=== PATIENT | female | born 1970 | race Caucasian/White ===

== ENCOUNTER 2020-02-23 16:46 | Outpatient (CLI) | payer BC, OTHER, SELFPAY ==
--- NOTE | ~2020-02-23 | MM_ITS ---
EXAMINATION: MM screening [facility] HISTORY: Screening mammogram TECHNIQUE: Craniocaudal and mediolateral oblique 3-D tomosynthesis images were obtained and synthetic 2-D images were generated. CAD analysis was submitted and interpreted. COMPARISON: 02/14/2019, 02/10/2018, 01/30/2017 bilateral digital screening mammogram examinations 02/16/2018 diagnostic left digital mammogram BREAST PARENCHYMAL COMPOSITION: The breasts are almost entirely fatty. FINDINGS: There is no evidence of suspicious mass, calcification, or architectural distortion to sugg est malignancy in either breast. There has been no suspicious interval change. IMPRESSION: 1. No mammographic evidence of malignancy. 2. Recommend routine screening mammography in one year. BI-RADS Category 1: Negative Reviewed, dictated and finalized at location A.
== END 2020-02-23 16:47 | disposition home or self-care (01) ==
LOC: ANHIMG 16:51
PROVIDERS: PCP Physician Assistant; Visit Provider Advanced Practice Midwife
DX: Z12.31 Encounter for screening mammogram for malignant neoplasm of breast (principal)
CPT/HCPCS: 77063; 77067

== ENCOUNTER 2021-02-26 17:08 | Outpatient (CLI) | payer BC, OTHER, SELFPAY ==
--- NOTE | ~2021-02-26 | MM_ITS ---
EXAMINATION: MM screening [facility] BI w va HISTORY: Screening mammogram TECHNIQUE: Craniocaudal and mediolateral oblique 3-D tomosynthesis images were obtained and synthetic 2-D images were generated. CAD analysis was submitted and interpreted. COMPARISON: 02/23/2020, 02/14/2019, 02/16/2018 BREAST PARENCHYMAL COMPOSITION: The breasts are almost entirely fatty. FINDINGS: There is no evidence of suspicious mass, calcification, or architectural distortion to sugg est malignancy in either breast. There has been no suspicious interval change. IMPRESSION: 1. No mammographic evidence of malignancy. 2. Recommend routine screening mammography in one year. BI-RADS Category 1: Negative Reviewed, dictated and finalized at location A.
== END 2021-02-26 17:09 | disposition home or self-care (01) ==
PROVIDERS: PCP Physician Assistant; Visit Provider Advanced Practice Midwife
DX: Z12.31 Encounter for screening mammogram for malignant neoplasm of breast (principal)
CPT/HCPCS: 77063; 77067

== ENCOUNTER 2022-02-06 00:08 | Day surgery (SDC) | payer BC, OTHER, SELFPAY ==
[2022-01-21 14:55] VITALS: BMI 55.6
--- NOTE | 2022-02-05 13:00 | WPDANESEPPF ---
Anes - Initial Pre Proc Eval Procedure: Operation Date: 02/06/22 08:00 Proposed Procedures p Screening Colonoscopy - Audi Esteban MD Date/Time: 02/05/22 13:00 Surgeon: uAdi Esteban MD Pre Op Diagnosis: hx of colon polyps, neoplasm screening Patient Data Age: 51 Gender: F Height: 1.57 m Weight: 138 kg Allergies Allergy/AdvReac Type Severity Reaction Status Date / Time terfenadine Allergy Mild Hives / Verified 02/06/22 07:11 Red Face Penicillins Allergy Unknown Hives Verified 02/06/22 07:11 Sulfa (Sulfonamide Allergy Unknown Hives Verified 02/06/22 07:11 Antibiotics) Home Medications Medication Instructions Recorded Confirmed Type cholecalciferol (vitamin D3) 125 125 mcg PO DAILY 01/21/22 02/06/22 History mcg (5,000 unit) capsule magnesium 250 mg tablet 250 mg PO DAILY 01/21/22 02/06/22 History valsartan 80 1 tablet PO DAILY 01/21/22 02/06/22 History mg-hydrochlorothiazide 12.5 mg tablet Patient hx anesthesia problems: none Family hx anesthesia problems: none Results Review: All pre-operative results and documents have been reviewed as part of the pre-operative evaluation. [facility] Past Medical History Medical History (Updated 02/05/22 @ 13:00 by Kody Bautista DO) Anxiety Hypertension Mitral valve prolapse Social History Social History Smoking status: Former smoker Tobacco type: cigarettes Alcohol intake: current Drinks per week: 6 Substance use type: does not use Living arrangements: with family Spiritual care concerns: No Anes - Eval Final PreProcedure Day of Procedure 02/05/22 13:00 Patient weight: morbidly obese and super morbidly obese Heart: regular rate and rhythm Lungs: clear to auscultation Airway: Mallampati scale class II Neurological: alert and oriented Last oral intake: >/= 8 hours ASA classification: III Emergent: no Anesthetic plan: proceed Anesthesia type and monitoring: general GIVS and standard monitoring Results Review: All pre-operative results and documents have been reviewed as part of the pre-operative evaluation. Informed Consent: The patient's anesthetic plan and its attendant risks and benefits were discussed with the patient/family/POA. Questions were solicited and answers provided to the satisfaction of the patient/family/POA.
[2022-02-06 07:17] VITALS: BP 140/89; PULSE 98; RESP 20; TEMP 36.2; O2SAT 100; BMI 53.8
[2022-02-06] MEDS: LACTATED RINGERS 1,000 ML 150 ML IV CONT (07:37)
--- NOTE | 2022-02-06 08:03 | P.HP_ITS ---
H&P: HPI History of Present Illness Date/Time: 02/06/22 08:03 Chief Complaint: History of colon polyps. Narrative: This is a 51-year-old white female patient presents for colonoscopy. Patient has a prior history of colon polyps. Patient reports that her current weight appetite and bowel movements are normal. She denies abdominal pain. She has had no bleeding. Family history Is significant for colon polyps. Review of Systems Review of Systems: Review of systems noncontributory. [facility] Past Medical History Medical History (Updated 02/06/22 @ 08:05 by Audi Esteban MD) Anxiety Hypertension Mitral valve prolapse Social History Social History Smoking status: Former smoker Tobacco type: cigarettes Alcohol intake: current Drinks per week: 6 Substance use type: does not use Living arrangements: with family Spiritual care concerns: No Meds Home Medications and Allergies Home Medications Medication Instructions Recorded Confirmed Type cholecalciferol (vitamin D3) 125 125 mcg PO DAILY 01/21/22 02/06/22 History mcg (5,000 unit) capsule magnesium 250 mg tablet 250 mg PO DAILY 01/21/22 02/06/22 History valsartan 80 1 tablet PO DAILY 01/21/22 02/06/22 History mg-hydrochlorothiazide 12.5 mg tablet Allergies Allergy/AdvReac Type Severity Reaction Status Date / Time terfenadine Allergy Mild Hives / Verified 02/06/22 07:11 Red Face Penicillins Allergy Unknown Hives Verified 02/06/22 07:11 Sulfa (Sulfonamide Allergy Unknown Hives Verified 02/06/22 07:11 Antibiotics) Vital Signs Vital Signs - 24 hr 02/06/22 07:17 Temperature 97.2 F L Pulse Rate 98 Respiratory Rate 20 Blood Pressure 140/89 Pulse Oximetry 100 Oxygen Delivery Room Air Exam Narrative: Physical exam reveals patient to be alert. Vital signs stable. HEENT exam is unremarkable. Patient is anicteric. Lungs are clear to auscultation and percussion. Heart is without murmur or extra sounds. Abdomen is obese. Abdomen bowel sounds present soft nontender with no hepatosplenomegaly. Digital external rectal exam is normal. Assessment and Plan Assessment and plan (1) History of colon polyps: Code(s): Z86.010 - Personal history of colonic polyps Status: Acute Assessment and Plan: Patient has a prior history of colon polyps. Plan is for surveillance colonoscopy now and consider this a 5 year intervals in the future. (2) Family history of colonic polyps: Code(s): Z83.71 - Family history of colonic polyps Status: Acute (3) Obese: Code(s): E66.9 - Obesity, unspecified Status: Acute Assessment and Plan: Weight loss with calorie restriction increase activity encouraged.
[2022-02-06] MEDS: SIMETHICONE ORAL SUSPENSION 20 MG/0.3 ML 30 ML BOTTLE 0.6 ML IRRIGATION (08:43)
[2022-02-06 08:55] VITALS: BP 103/59; PULSE 81; RESP 21; O2SAT 99
[2022-02-06 09:05] VITALS: BP 119/49; PULSE 74; RESP 22; O2SAT 99
[2022-02-06 09:15] VITALS: BP 123/57; PULSE 78; RESP 17; O2SAT 100
== END 2022-02-06 09:26 | disposition home or self-care (01) ==
PROVIDERS: PCP Physician Assistant; Visit Provider Internal Medicine Gastroenterology
PROC: 0DJD8ZZ Inspection of Lower Intestinal Tract, Via Natural or Artificial Opening Endoscopic (ICD-10-PCS; CPT 45378; principal; 2022-02-06 08:00)
DX: Z12.11 Encounter for screening for malignant neoplasm of colon (principal); K64.8 Other hemorrhoids; K57.30 Diverticulosis of large intestine without perforation or abscess without bleeding; Z86.010 Personal history of colon polyps; Z83.71 Family history of colonic polyps; I10 Essential (primary) hypertension; I34.1 Nonrheumatic mitral (valve) prolapse; Z87.891 Personal history of nicotine dependence; E66.01 Morbid (severe) obesity due to excess calories; Z68.43 Body mass index [BMI] 50.0-59.9, adult
CPT/HCPCS: 45378; J2704; J7120

== ENCOUNTER 2022-04-16 16:57 | Outpatient (CLI) | payer BC, OTHER, SELFPAY ==
--- NOTE | ~2022-04-16 | MM_ITS ---
EXAMINATION: MM screening [facility] HISTORY: Screening TECHNIQUE: Craniocaudal and mediolateral oblique 3-D tomosynthesis images were obtained and synthetic 2-D images were generated. CAD analysis was submitted and interpreted. COMPARISON: Comparison to multiple prior studies sequentially, with oldest reviewed study dated 02/2018. BREAST PARENCHYMAL COMPOSITION: There are scattered areas of fibroglandular density. FINDINGS: Focal left breast asymmetry laterally in the left breast is unchanged. There is no evidence of suspicious mass, calcification, or architectural distortion to suggest malignancy in either breas t. There has been no suspicious interval change. IMPRESSION: 1. No mammographic evidence of malignancy. 2. Recommend routine screening mammography in one year. BI-RADS Category 2: Benign finding(s). Reviewed, dictated and finalized at location A.
== END 2022-04-16 16:58 | disposition home or self-care (01) ==
PROVIDERS: PCP Physician Assistant; Visit Provider Advanced Practice Midwife
DX: Z12.31 Encounter for screening mammogram for malignant neoplasm of breast (principal)
CPT/HCPCS: 77063; 77067

== ENCOUNTER 2023-07-21 15:37 | Outpatient (CLI) | payer BC, OTHER, SELFPAY ==
--- NOTE | ~2023-07-21 | MM_ITS ---
EXAMINATION: MM screening [facility] HISTORY: Screening TECHNIQUE: Craniocaudal and mediolateral oblique 3-D tomosynthesis images were obtained and synthetic 2-D images were generated. CAD analysis was submitted and interpreted. COMPARISON: No prior mammogram is available for comparison at this institution. BREAST PARENCHYMAL COMPOSITION: The breasts are almost entirely fatty. FINDINGS: There is no evidence of suspicious mass, calcification, or architectural distortion to sugg est malignancy in either breast. There has been no suspicious interval change. IMPRESSION: 1. No mammographic evidence of malignancy. 2. Recommend routine screening mammography in one year. BI-RADS Category 1: Negative Reviewed, dictated and finalized at location A. [facility]
== END 2023-07-21 15:38 | disposition home or self-care (01) ==
PROVIDERS: PCP Physician Assistant; Visit Provider Advanced Practice Midwife
DX: Z12.31 Encounter for screening mammogram for malignant neoplasm of breast (principal)
CPT/HCPCS: 77063; 77067

== ENCOUNTER 2024-08-17 14:53 | Outpatient (CLI) | payer BC, SELFPAY ==
--- NOTE | ~2024-08-17 | MM_ITS ---
EXAMINATION: MM screening abdirashid BI w va HISTORY: Screening TECHNIQUE: Craniocaudal and mediolateral oblique 3-D tomosynthesis images were obtained and synthetic 2-D images were generated. CAD analysis was submitted and interpreted. COMPARISON: Comparison to multiple prior studies sequentially, with oldest reviewed study dated 02/14. BREAST PARENCHYMAL COMPOSITION: Not Dense: The breasts are almost entirely fatty. FINDINGS: There is no evidence of suspicious mass, calcification, or architectural distortion to sugg est malignancy in either breast. There has been no suspicious interval change. IMPRESSION: 1. No mammographic evidence of malignancy. 2. Recommend routine screening mammography in one year. BI-RADS Category 1: Negative Reviewed, dictated and finalized at location B. [employer]
--- OUTSIDE RECORDS SUMMARY | 2024-08-17 14:58 | XMS_ITS | Encounter Summary ---
Author Organization [facility] Facility Care Team Providers Care Foam Dispenser Name Role Phone DEMARCUS Price Jr., Josiah Leyva Primary Care Provide r Silvana Eastman MD Unavailable [phone] De Higgins MD Unavailable Seth Lofton MD Unavailable [phone] Encounter Details Date Type Department Care Team (Latest Contact Info) Description 02/12/2017 Orders Only [facility] Provider, MD Trae [address] [place] [id number] Social History Tobacco Use Types Packs/Day Years Used Date Smoking Tobacco: Never Assessed Comments Unknown Sex and Gender Information Value Date Recorded Sex Assigned at Not on file Legal Sex Female 1:52 PM [employer] Gender Identity Female 01/25/2020 1:18 AM CDT Sexual Orientation Straight 01/25/2020 1: 18 AM CDT documented as of this encounter Plan of Treatment Not on file documented as of this encounter Procedures Procedure Name Priority Date/Time Associated Diagnosis Comments COLONOSCOPY - SCAN 02/12/2017 12 :00 AM CDT documented in this encounter Results * COLONOSCOPY - SCAN (02/12/2017 12:00 AM CDT) Narrative 02/12/2017 12:00 AM CDT Ordered by an unspecified provider. Historical Provider Final Res ult documented in this encounter Visit Diagnoses Not on filedocumented in this encounter Care Teams Foam Dispenser Relationship Specialty Start Date End Date Josiah Price Jr., PA [address] [place] [id number] PCP - General Family Medicine 02/16/19 Silvana Eastman MD [address] [place] [id number] Consulting Physician Family Medicine 02/16/19 12/24/21 De Higgins MD [address] [place] [id number] Consulting Physician Family Medicine 12/25/21 Seth Lofton MD [address] [address] Consulting Physician General Surgery 01/14/23 documented as of this encounter
--- OUTSIDE RECORDS SUMMARY | 2024-08-17 14:58 | XMS_ITS | Data Portability ---
Author Organization [facility] Address [address] [place] [address] Care Team Providers Care Black Topper Name Role Phone LETICIA CHENG Primary Care Provider Assessment Encounter Date Assessment Date Assessment LastModified by Organization Details LastModified Time 09/12/2022 09/12/2022 Pt tolerated well, no complaints Not available 09/13/2022 18:28:40 07/29/2023 07/29/2023 Annual gynecological exam performed. Patient will come back in a year unless there are new symptoms. Suggested Calcium with Vitamin D 1200-1500mg daily. Patient advised to get an annual flu shot in the fall and she could obtain at [facility] or [facility] clinic. Also to obtain TDap vaccination if you have not had one in the last 10 years. Recommend yearly mammograms. Encouraged monthly self breast exams. Encourage safe sexual practices, to use condoms and limit partners if not already in a monogamous relationship. Engage in daily exercise of low impact aerobic exercise 45-60 minutes 4-5 times weekly. Avoid tobacco and illicit drugs as well as using moderation with alcohol intake less than 1-2 8 oz beverages daily. This lifestyle behavior pattern will lead to less health conditions and longer life span. If BMI greater than 25 weight watchers or dietary consult advised. All questions have been answered. Patient appears to understand information, but if you have any questions please call or respond to this email. Not available 07/29/2023 16:58:27 08/03/2024 08/03/2024 Annual gynecological exam performed. Patient will come back in a year unless there are new symptoms. Suggested Calcium with Vitamin D 1200-1500mg daily. Patient advised to get an annual flu shot in the fall and she could obtain at [facility] or [facility] care clinic. Also to obtain TDap vaccination if you have not had one in the last 10 years. Recommend yearly mammograms. Encouraged monthly self breast exams. Encourage safe sexual practices, to use condoms and limit partners if not already in a monogamous relationship. Engage in daily exercise of low impact aerobic exercise 45-60 minutes 4-5 times weekly. Avoid tobacco and illicit drugs as well as using moderation with alcohol intake less than 1-2 8 oz beverages daily. This lifestyle behavior pattern will lead to less health conditions and longer life span. If BMI greater than 25 weight watchers or dietary consult advised. All questions have been answered. Patient appears to understand information, but if you have any questions please call or respond to this email. pap collected labs ordered mammogram order given Not available 08/04/2024 13:37:32 Plan of Treatment Reminders Order Date Submit Date Provider Last Modified By Organization Details Last Modified Time Details Appointments None recorded. Lab test, urine 2022 023 [email or web address] 1 [address], [address], [place], [address], 3 16:55:55 hormone panel, serum or plasma 2024 025 [facility] (Lab), [address], [place], [address], 5 09:08:20 Referral None recorded. Procedures None recorded. Surgeries None recorded. Imaging US, pelvis 2023 024 [email or web address] [address], [place], [address], 4 14:22:15 US, transvagina l 2023 024 [email or web address] [address], [place], [address], 4 14:22:15 Medication Orders Slynd 4 mg (28) tablet 2022 023 [email or web address] 1 [facility] #[id number], [address], [place], [id number], 5 17:36:03 Nystop 100,000 unit/gram topical powder 2023 024 CANDACE [facility] #[id number], [address], [place], [id number], 4 16:57:09 Patient TargetsNo targets recorded. Patient InstructionsNo instructions recorded. Reason for Referral None Reported. Results Created Date Observation Date Name Description Value Unit Range Abnormal Flag Note LastModifiedBy Organization Detail LastModifiedTime 09/13/1909/12/2022 SURGI NICK PATHO LOGY surgical pathology SEE RESULT S BELOW CASE REPOR T: Surgi nick Patho logy Repor t Case: [id number] Autho suhas colbert Provi violette: Liane Navarro NP Colle cted: 09/12 1625 Order ing Locat ion: [place] [facility] Recei champ: 09/13 0253 Patho logis t: Brea Ivan MD Speci men: Endom etriu m, EMB FINAL DIAGN OSIS: Endom etriu m, biops y: -Inac tive endom etriu m with stacey al break down. -No hyper plasi a or malig dale prese nt. Elect liang rodas by Brea Ivan MD on 2022 at 9:48 AM ----- ----- ----- ----- ----- ----- ----- ----- ----- ----- ----- ----- ----- ----- ----- ----- ----- ---- CLINI NICK INFOR MATIO N: n93.9 MICRO SCOPI C DESCR IPTIO N: A micro scopi c exami natio n was perfo rmed. GROSS DESCR IPTIO N: A. Krystal murillowill jacques. The speci men is label ed with the patie nt's name, sebastian valderramai cs and EMB . Recei champ in forma juan is a 2.0 x 2.0 x 0.3 cm aggre gate of watson-b rown tissu e and blood clot. The entir e speci men is submi tted in one casse tte. Gross ed by Jaelyn Jimenez Not Available [facility] (Lab) [address], [place], [address], 09/15/2022 10:50:25 09/13/19 23 09/12/2022 pregn rodrick test, urine HCG negati ve Not Available [facility] [address], [place], [address], 09/12/2022 16:55:37 07/29/19 24 07/29/2023 IMAGE GUIDE D PAP AND HPV REGAR DLESS image guided Pap, HPV regardless of Pap result SEE RESULT S BELOW CASE REPOR T: Cytol ogy Gynec ologi nick Repor t Case: [id number] Autho suhas g Provi violette: Liane Navarro NP Colle cted: 07/29 1734 Order ing Locat ion: [place] Patho [place] Recei champ: 07/30 0034 First Scree n: Estela Berry Speci men: Scree diana Pap - Image d, Cervi x STATE MENT OF ADEQU ACY: Satis facto ry for evalu ation Trans forma tion zone compo nent prese nt FINAL DIAGN OSIS: Negat ralph for Intra epith elial Lesio n or Jan hunter (NIL) . Elect liang manjarrez rashmi d by Estela Berry on 2023 at 7:26 PM ----- ----- ----- ----- ----- ----- ----- ----- ----- ----- ----- ----- ----- ----- ----- ----- ----- ---- HPV RESUL TS: HPV mRNA E6/E7 : No HPV mRNA Detec jaky NOTE: This high risk HPV mRNA assay detec ts fourt een high- risk HPV types (16, 18, 31, 33, 35, 39, 45, 51, 52, 56, 58, 59, 66, 68) witho ut diffe renti ation . COMME NT: This speci men was revie wed by a Cytot echno logis t and/o r Patho logis t (as indic ated in this repor t) after evalu ation using the Thinp rep Imagi ng Syste m. CLINI NICK INFOR MATIO N: Menst rual Statu s: LMP (if appli cable ): Clini nick Histo ry/Pr eviou s Pap: Type of Neopl norma (if appli cable ): Signi fican t Clini nick Findi ngs: Other Histo ry: Hormo carmen (if appli cable ): PAP EDUCA OLLIE L NOTE: The Pap Test is a scree diana test with an inher ent false negat ralph rate. Liqui d-bas ed sampl ing may decre ase, but will not elimi jacobo, false negat ralph resul ts. A negat ralph resul t does not precl ude the prese nce and/o r devel opmen t of disea se, since the prese nce of abnor mal cells in the sampl e depen ds on the locat ion of the lesio n and sampl ing techn ique. Lani nued regul ar scree diana is the best metho d of cance r preve ntion . If repor jaky cytol ogic findi ng do not corre late with physi nick and/o r histo rical findi ngs, furth er inves tigat ion is recom herbert d, as clini frankie sequeira nted. Not Available [facility] (Lab) [address], [place], [address], 07/30/2023 20:30:19 08/03/19 25 08/03/2024 FSH, LH, ESTRA DIOL estradiol 126.0 pg/mL This assay was perfo rmed using [employer] ratio n reage nts and test kits. Value s obtai harsha with other assay metho ds or kits canno t be used [facility] . Femal e Estra diol Range s: Folli cular phase 12.4- 233 pg/mL Ovula tion phase 41.0- 398 pg/mL Lutea l phase 22.3- 341 pg/mL Postm enopa usal <5-13 8 pg/mL Healt hy Pregn ant Women 1st Trime ster 154-3 243 pg/mL 2nd Trime ster 1561- 37380 pg/mL 3rd Trime ster 8525- >3000 0 pg/mL Not Available [facility] (Lab) [address] [place], [address], 08/04/2024 09:08:20 08/03/19 25 08/03/2024 FSH, LH, ESTRA DIOL FSH 14.9 mIU/m L This assay was perfo rmed using [employer] n reage nts and test kits. Value s obtai harsha with other assay metho ds or kits canno t be used [facility] . Femal es Folli cular : 3.5-1 2.5 mIU/m L Ovula tion: 4.7-2 1.5 mIU/m L Lutea l: 1.7-7 .7 mIU/m L Postm enopa use: 25.8- 134.8 mIU/m L Not Available [facility] (Lab) [address] [place], [address], 08/04/2024 09:08:20 08/03/1908/03/2024 FSH, LH, ESTRA DIOL LH 34.6 mIU/m L This assay was perfo rmed using [employer] reage nts and test kits. Value s obtai harsha with other assay metho ds or kits canno t be used inter [facility] . Femal es Mid-F ollic ular: 2.4-1 2.6 mIU/m L Mid-C ycle: 14.0- 95.6 mIU/m L Mid-L uteal : 1.0-1 1.4 mIU/m L Postm enopa use: 7.7-5 8.5 mIU/m L Not Available [facility] (Lab) [address], [place], [address], 08/04/2024 09:08:20 08/03/19 25 08/03/2024 IMAGE GUIDE D PAP AND HPV REGAR DLESS image guided Pap, HPV regardless of Pap result SEE RESULT S BELOW CASE REPOR T: Cytol ogy Gynec ologi nick Repor t Case: [id number] Autho suhas sayra Provi violette: Liane Navarro NP Colle cted: 08/03 1707 Order ing Locat ion: [place] Patho logy Recei champ: 08/04 0902 First Nannette n: Sedrick Rahman CT Speci men: Nannette diana Pap - Image d, Cervi x STATE MENT OF ADEQU ACY: Satis facto ry for evalu ation Trans forma tion zone compo nent absen t ----- ----- ----- ----- ----- ----- ----- ----- ----- ----- ----- ----- ----- ----- ----- ----- ----- ---- FINAL DIAGN OSIS: Negat ralph for Intra epith elial Lesnargis n or Jan hunter (NIL) . Elect liang caraballo d by Sedrick Rahman CT on 025 at 0845 REGIONAL CLIMATE CHANGE ANALYST ----- ----- ----- ----- ----- ----- ----- ----- ----- ----- ----- ----- ----- ----- ----- ----- ----- ---- HPV RESUL TS: HPV mRNA E6/E7 : No HPV mRNA Detec jaky NOTE: This high risk HPV mRNA assay detec ts fourt een high- risk HPV types (16, 18, 31, 33, 35, 39, 45, 51, 52, 56, 58, 59, 66, 68) witho ut diffe renti ation . COMME NT: This speci men was revie wed by a Cytot echno logis t and/o r Patho logis t (as indic ated in this repor t) after evalu ation using the Thinp rep Imagi ng Syste m. CLINI NICK INFOR MATIO N: Menst rual Statu s: LMP (if appli cable ): Clini nick Histo ry/Pr eviou s Pap: Type of Neopl norma (if appli cable ): Signi fican t Clini nick Findi ngs: Other Histo ry: Hormo carmen (if appli cable ): PAP EDUCA OLLIE L NOTE: The Pap Test is a scree diana test with an inher ent false negat ralph rate. Liqui d-bas ed sampl ing may decre ase, but will not elimi jacobo, false negat ralph resul ts. A negat ralph resul t does not precl ude the prese nce and/o r devel opmen t of disea se, since the prese nce of abnor mal cells in the sampl e depen ds on the locat ion of the lesio n and sampl ing techn ique. Lani nued regul ar scree diana is the best metho d of cance r preve ntion . If repor jaky cytol ogic findi ng do not corre late with physi nick and/o r histo rical findi ngs, furth er inves tigat ion is recom herbert d, as clini frankie sequeira nted. Not Available [facility] (Lab) [address], [place], [address], 08/09/2024 09:49:49 09/10/19 23 09/10/2022 US, tremaine s No observ ation record ed. [email or web address] [facility] [address], [place], [address], 09/10/2022 17:35:59 09/10/19 23 09/10/2022 US, trans vagin al No observ ation record ed. [email or web address] [facility] [address], [place], [address], 09/10/2022 17:35:50 09/10/19 23 09/09/2022 US, pelvi s No observ ation record ed. [facility] [address], [place], [address], 09/10/2022 20:21:26 07/21/19 24 07/21/2023 imagi ng/di agnos tic resul t No observ ation record ed. [facility] [address], [place], [address], 07/24/2023 18:28:28 05/10/20 24 05/10/2024 US, pelvi s No observ ation record ed. [email or web address] [facility] [address], [place], [address], 05/10/2024 11:22:46 05/10/20 24 05/10/2024 US, trans vagin al No observ ation record ed. [email or web address] [facility] [address], [place], [address], 05/10/2024 11:22:55 05/10/20 24 05/10/2024 US, pelvi s No observ ation record ed. CANDACE [facility] [address], [place], [address], 05/14/2024 10:13:09 Result Notes None recorded. 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 18:33:33 Screenin g for malignan t neoplasm of rectum Completed 201603/20/2021 Encounte r for screenin g for malignan t neoplasm of rectum;R ecorded Elsewher e: No Locat ion: [facility] S ource: [employer] Software Designer olga lidia: N Practi ce ID: [id number] Kurt lable Time: 08:30:00 AM Kristina Pineda [facility], [facility] 18:33:29 Speciali zed medical examinat ion Completed 201003/20/2021 Routine gynecolo gical examinat ion;Prac jessie ID: [id number] Kristina Pineda [facility], [facility] 18:33:36 Screenin g for malignan t neoplasm of cervix Completed 201003/20/2021 Pap Smear;Pr actice ID: [id number] Kristina Pineda [facility], [facility] 18:33:26 Body mass index 30+ - obesity [id number] Completed 201803/20/2021 Body mass index (BMI) 50-59.9 , adult;Re corded Elsewher e: No Locat ion: [facility] S ource: [employer] Software Designer olga lidia: N Practi ce ID: [id number] Kurt lable Time: 09:15:00 AM Kristina Pineda [facility], [facility] 18:33:[address] Concept Completed 201603/20/2021 Encntr for general adult medical exam w/o abnormal findings ;Recorde d Elsewher e: No Locat ion: [facility] S ource: [employer] Software Designer olga lidia: N [place] ce ID: [id number] Kurt lable Time: 08:30:00 AM Kristina gaviria [facility] 18:33:30 Radiolog ic finding [id number] Completed 201703/20/2021 Oth abn and inconclu sive findings on dx imaging of breast;R ecorded Elsewher e: No Locat ion: [facility] S ource: [employer] Software Designer olga lidia: N Practi ce ID: [id number] Kurt lable Time: 08:39:31 AM Kristina gaviria [facility] 18:33:24 Adult health examinat ion Completed 201403/20/2021 ROUTINE MEDICAL EXAM;Rec orded Elsewher e: No Locat ion: [facility] S ource: [employer] Software Designer olga lidia: N Joeti ce ID: [id number] Kurt lable Time: 09:30:00 AM Kristina gaviria [facility] 18:33:19 Problem Notes None recorded. Procedures Surgical History Date Name Laterality Status Provider Name and Address Organization Details Recorded Time 025 Date of Last Pap Smear completed Kristinagris Pineda [facility] 08/03/2024 17:39:27 024 Date of Last Mammogram completed Kristinagris Pineda [facility] 07/21/2023 23:20:32 023 cholecystectomy completed Kristina Pineda [facility] 03/04/2023 18:25:30 023 Endometrial Biopsy completed Liane Henning CNM [address], [place], [address], [facility] 09/13/2022 18:29:04 023 endometrial biopsy completed Kristinagris Pineda [facility] 07/21/2023 23:56:43 022 completed [facility] 06/11/2022 17:48:02 022 Date of Last Colonoscopy completed [facility] 06/11/2022 17:48:02 022 Colonoscopy completed [facility] 06/11/2022 17:52:13 017 Colonoscopy completed [facility] 02/28/2020 20:07:38 012 Colonoscopy completed [facility] 02/28/2020 20:07:41 011 anal fistulectomy completed [facility] 02/28/2020 20:08:12 001 Colonoscopy completed [facility] 02/28/2020 20:07:44 Imaging Results Imaging Date Name Status LastModified by Organization Details LastModified Time 09/10/2022 US, pelvis completed [email or web address] [facility] [address], [place], [address], 09/10/2022 17:35:59 09/10/2022 US, transvaginal completed [email or web address] [facility] [address], [place], [address], 09/10/2022 17:35:50 09/09/2022 US, pelvis completed [email or web address] [facility] [address], [place], [address], 09/10/2022 20:21:26 07/21/2023 imaging/diagnost ic result completed [facility] [address], [place], [address], 07/24/2023 18:28:28 05/10/2024 US, pelvis completed [email or web address] [facility] [address], [place], [address], 05/10/2024 11:22:46 05/10/2024 US, transvaginal completed [email or web address] [place] [address], [place], [address], 05/10/2024 11:22:55 05/10/2024 US, pelvis completed CANDACE [facility] [address], [place], [address], 05/14/2024 10:13:09 Procedure Notes None recorded. Medical Equipment None Reported. Allergies Allergen ID Allergen Name Allergen Category Reaction Reaction Severity Criticality Documentation Date Start Date Code Code System Note Provider Name and Address Organization Details Recorded Time 1833 Product containin g penicilli n and antibioti c (product) medicatio n Not available Not available Not available 02/28/2020 87903 05 SNOMED Kristina gaviria, [facility] 0 19:57:04 1834 Substance with sulfonami de structure and antibacte rial mechanism of action (substanc e) medicatio n Not available Not available Not available 02/28/2020 40488 8003 SNOMED Kristina gaviria, [facility] 0 19:57:11 1835 terfenadi ne medicatio n Not available Not available Not available 02/28/2020 58565 RxNorm Kristina gaviria [facility] 0 20:02:55 Medications Name Sig Start Date Stop Date Status Note LastModified by Organization Details LastModified Time metolazon e 2.5 mg tablet 06/11 completed Not Available Not Available Not Available azithromy mikala 250 mg tablet TK 2 TS PO ON DAY 1, THEN TK 1 T PO D FOR 4 DAYS 03/20 completed Not Available Not Available Not Available hydrocodo ne 5 mg-acetam inophen 325 mg tablet 03/04 completed Not Available Not Available Not Available Nystop 100,000 unit/gram topical powder APPLY TOPICALL Y TO THE AFFECTED AREA TWICE DAILY PER DAY active Not Available Not Available No t Available sucralfat e 1 gram tablet 07/29 completed Not Available Not Available Not Available metronida zole 500 mg tablet TAKE 1 TABLET BY MOUTH EVERY 12 HOURS 03/04 completed Not Available Not Available Not Available valsartan 80 mg-hydroc hlorothia zide 12.5 mg tablet TAKE 1 TABLET BY MOUTH DAILY active Not Available Not Available No t Available pantopraz ole 40 mg tablet,de layed release 07/29 completed Not Available Not Available Not Available clobetaso l 0.05 % topical ointment apply by topical route 2 times every day a thin layer to the affected area(s) 03/20 completed Prescrib ed Elsewher e: No Locat ion: [facility] By: yang tz Chayo guthrie DateTime : 12/14/19 14 10:00:00 AM Not Available Not Available Not Available Vitamin D2 1,250 mcg (50,000 unit) capsule take 1 capsule by oral route every week 12/25 completed Prescrib ed Elsewher e: No Locat ion: [facility] By: arthur philip DateTime : 12/21/19 15 10:52:52 AM Not Available Not Available Not Available vitamin B complex capsule active Prescrib ed Elsewher e: Yes Loca tion: [facility] By: trent estes DateTime : 02/15/20 19 09:15:00 AM Not Available Not Available Not Available ciproflox acin 0.3 %-dexamet hasone 0.1 % ear drops,perfecto pension SHAKE LIQUID AND INSTILL 4 DROPS TO LEFT EAR TWICE DAILY FOR 7 DAYS 03/20 completed Not Available Not Available Not Available magnesium active Not Available Not Celsa ilable Not Available Vitamin D3 active Not Available Not Available Not Available vitamin [id number] acid 06/11 completed Not Available Not Available Not Available Vitamin D3 10 mcg (400 unit) capsule 03/20 completed Prescrib ed Elsewher e: Yes Loca tion: [facility] By: trent Siu r DateTime : 02/15/20 19 09:15:00 AM Not Available Not Available Not Available Nascobal 500 mcg/spray nasal spray spray 1 spray by intranas al route every week into one nostril at least 1 hour before or 1 hour after hot foods or liquids 02/14 completed Prescrib heri Higgins e: No Locat ion: [facility] By: trent Siu r DateTime : 01/04/20 16 12:47:42 PM Not Available Not Available Not Available zinc 15 mg-colos- [id number]-[id number] -psacc1 50 mg-thyme 1 mg-aceman 1 mg capsule Take by oral route. active Not Available Not Available No t Available Slynd 4 mg (28) tablet TAKE 1 TABLET BY MOUTH EVERY DAY 08/03 completed Not Available Not Available Not Available Fluarix Quad (PF) 60 mcg (15 mcg x 4)/0.5 mL IM syringe 02/27 completed Not Available Not Available Not Available Slynd 08/03 completed Not Available Not Available Not Available Sutab 1.479-0.1 88-0.225 gram tablet TAKE DIRECTED 06/11 completed Not Available Not Available Not Available Vitals Date Recorded Body height Body mass index (BMI) Body weight Systolic blood pressure Diastolic blood pressure Provider Name and Address Organization Details Last Updated DateTime 09/12/2022 156.85 cm 54.9 kg/m2 000948.5 3 g 128 mm[Hg] 85 mm[Hg] Kristina Pineda [facility] 3 16:43:19 Date Recorded Body height Body mass index (BMI) Body weight Systolic blood pressure Diastolic blood pressure Provider Name and Address Organization Details Last Updated DateTime 03/04/2023 156.85 cm 52.2 kg/m2 724189.6 4 g 128 mm[Hg] 83 mm[Hg] Kristina Pineda [facility] 3 18:23:36 Date Recorded Body height Body mass index (BMI) Body weight Systolic blood pressure Diastolic blood pressure Provider Name and Address Organization Details Last Updated DateTime 07/29/2023 156.85 cm 53.9 kg/m2 596044.6 9 g 123 mm[Hg] 84 mm[Hg] Karen Street [facility] 4 16:34:13 Date Recorded Body height Body mass index (BMI) Body weight Systolic blood pressure Diastolic blood pressure Provider Name and Address Organization Details Last Updated DateTime 08/03/2024 156.85 cm 56.4 kg/m2 097274.2 7 g 143 mm[Hg] 90 mm[Hg] Kristina Pineda [facility] 5 17:31:25 Social History Question Answer Notes LastModified by Organizat ion Details LastModified Time Tobacco Smoking Status Never Smoker Danica gaviria, [facility] 07/29/2023 16:22:16 Do You Have An Advance Directive? No [email or web address] Information not available 03/20/2021 What Is Your Level Of Alcohol Consumption? Moderate [email or web address] Information not available 03/20/2021 How Many Years Have You Consumed Alcohol? 32 [email or web address] Information not available 06/11/2022 Are You Blind Or Do You Have Difficulty Seeing? No [email or web address] Information not available 03/20/2021 What Is Your Level Of Caffeine Consumption? Moderate [email or web address] Information not available 03/20/2021 How Much Tobacco Do You Chew? None [email or web address] Information not available 03/20/2021 In The 14 Days Before Symptom Onset, Have You Had Close Contact With A Laboratory-confir med COVID-19 While That Case Was Ill? No [email or web address] Information not available 03/20/2021 In The 14 Days Before Symptom Onset, Have You Had Close Contact With A Person Who Is Under Investigation For COVID-19 While That Person Was Ill? No [email or web address] Information not available 03/20/2021 Have You Been To An Area Known To Be High Risk For COVID-19? No [email or web address] Information not available 03/20/2021 Are You Deaf Or Do You Have Serious Difficulty Hearing? No [email or web address] Information not available 03/20/2021 What Type Of Diet Are You Following? REGULAR [email or web address] Information not available 03/20/2021 Do You Or Have You Ever Used E-cigarettes Or Vape? Never Used Electronic Cigarettes [email or web address] Information not available 07/29/2023 What Is The Highest Grade Or Level Of School You Have Completed Or The Highest Degree You Have Received? 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 Yes [email or web address] Information not available 03/20/2021 What Was The Date Of Your Most Recent Tobacco Screening? 08/03/2024 [email or web address] Information not available 08/03/2024 Do You Use Protection During Sex? Always [email or web address] Information not available 03/20/2021 Do You Use Your Seat Belt Or Car Seat Routinely? Yes [email or web address] Information not available 03/20/2021 Do You Have Smoke And Carbon Monoxide Detectors In Your Home? Yes [email or web address] Information not available 03/20/2021 Do You Or Have You Ever Used Smokeless Tobacco? Never Used Smokeless Tobacco [email or web address] Information not available 07/29/2023 How Much Tobacco Do You Smoke? No [email or web address] Information not available 02/28/2020 Do You Feel Stressed (tense, Restless, Nervous, Or Anxious, Or Unable To Sleep At Night)? [id number] [email or web address] Information not available 03/20/2021 Do You Use Any Illicit Or Recreational Drugs? No [email or web address] Information not available 03/20/2021 Do You Use Sunscreen Routinely? Yes [email or web address] Information not available 03/20/2021 Have You Used IV Drugs? No [email or web address] Information not available 03/20/2021 Sex: Female Functional Status Question Answer Note LastModified by Organizat ion Details LastModified Time Do you have difficulty walking or climbing stairs? No Information not available 07/29/2023 Are you able to walk? YESWOREST [email or web address] Information not available 03/20/2021 Are you able to care for yourself? Yes [email or web address] Information not available 07/29/2023 Do you have difficulty dressing or bathing? No [email or web address] Information not available 07/29/2023 What is your exercise level? Occasional [email or web address] Information not available 03/20/2021 Mental Status None recorded. Family History Relationship Description Onset Age of this Age Resolved Age Notes LastModified by Organization Details LastModified Time Paternal Grandfather Cerebrovascu lar accident Not available 20:06:04 Paternal Grandfather History of hip fracture [email or web address] Not available 17:35:50 Paternal Grandmother Malignant tumor of breast 60 [email or web address] Not available 08/03 17:35:50 Paternal Grandmother Malignant neoplasm of bone [email or web address] Not available 08/03 17:35:50 Maternal Grandmother Malignant neoplasm of liver 70 Not available 08/03 17:35:50 Maternal Grandmother Malignant tumor of colon 70 [email or web address] Not available 08/03 17:35:50 Paternal Uncle Malignant tumor of colon 40 [email or web address] Not available 08/03 17:35:50 Unspecified Relation Malignant tumor of ovary 20 patern al cousin [email or web address] Not available 08/03/2024 17:35:50 Notes:Maternal grandmother: Cancer, colon, liver cancer Paternal grandfather: CVA 85y/o A&W hip fx Paternal grandmother: Cancer, breast, bone cancer Medical History Condition Response Allergies (Food, seasonal, environmental ) N Other N Breast Cancer N Drug/Latex Allergies/Reactions N Blood Transfusion N Dermatologic Disorders N Lung Disease N Defects or Inherited Disease N Breast Problem N Gestational Diabetes N Hematologic disorders N Anesthesia Complications N History of STI Y Deep Vein Thrombosis N Polycystic ovary syndrome N Anxiety Disorder N Autoimmune disease N Arthritis N Infertility N Polyps N Acid Reflux (GERD) Y History of abnormal pap Y Cancer N Stroke N Varicosities N Neurologic/Epilepsy N Endometriosis N High Cholesterol N Headaches N Fibromyalgia N Kidney Disease N Heart Problems N Kidney or Bladder Problems N Thyroid Problems N GI Problems Y Eating Disorder N Anemia N Art (IVF or FET) N Psychiatric Illness N Ovarian Cancer N Diabetes N Pulmonary (TB, Asthma) N Hepatitis/Liver Disease N No Past Medical History N Eczema N Urinary Tract Infection N Abuse/Domestic Violence N Asthma N Trauma/Violence N Depression/ depression N Heart Disease N Pre-Eclampsia N Hypertension Y Osteoporosis N Thrombophilias N Gynecological History Statement/Question Response Abnormal Pap Y Flow Light Date of Last Mammogram 07/21/2023 Date of LMP 07/20/2024 N On BCP's at Conception? N STIs/STDs Y Was last menstrual period normal N HPV Vaccine N Duration of Flow (days) 7 Current Control Method Partner Vas ectomy Age at First Child 29 Date of Last Colonoscopy 02/06/2022 Frequency of Cycle (Q days) 29 Sexually Active? Y Menses Monthly N Age of first menstrual cycle 14 Date of Last Pap Smear 08/03/2024 Sexual Problems? N LMP Definite Desired Control Method BCPs 02/06/2022 Y Obstetrics History GPAL:G 2 P 1 1 0 2 Type Value Full Term 1 Premature 1 Living 2 Total 2 Past Encounters Encounter ID Performer Location Encounter Start Date Encounter Closed Date Diagnosis/Indication Diagnosis SNOMED-CT Code Diagnosis ICD10 Code Diagnosis Note [id number] Liane Henning [facility] [address],[place] [address] 02/28/2020 18:19:35 02/29/2020 22:10:19 Gynecologic examination 80888491 Z01.419 [id number] Liane Henning [facility] [address],[place] [address] 03/20/2021 18:18:26 03/22/2021 15:19:41 [id number] Liane Henning [facility] [address],[place] [address] 06/11/2022 17:26:49 06/13/2022 15:52:48 Gynecologic examination 94148704 Z01.[address] Z11.[id number] [facility] [address],[place] [address] 09/09/2022 17:09:42 09/09/2022 18:01:13 Irregular periods 65925993 N92.6 [id number] Liane Henning [facility] [address],[place] [address] 09/12/2022 16:31:59 09/15/2022 17:29:54 Screening procedure 18588619 Z13.9 Irregular periods 627079 07 N92.6 Discussed possible progestero ne to regulate cycles (slynd) will await pathology [id number] Liane Henning [facility] [address],[place] [address] 03/04/2023 18:16:37 03/05/2023 12:25:55 Irregular periods 08397897 N92.6 will continue slynd, re evaluate at next wwe [id number] Liane Henning [facility] [address],[place] [address] 07/29/2023 16:21:54 07/29/2023 17:01:25 Yeast detected 511756232 R89.5 [id number] Marine Looney Hutchins [address],[place] [address] 05/10/2024 10:40:01 05/10/2024 11:53:42 Abnormal uterine bleeding 1732874165 9100 N92.6 [id number] Liane Henning [facility] [address],[place] [address] 08/03/2024 17:09:51 08/04/2024 16:56:21 Irregular periods 23952185 N92.6 if monthly cycles will continue to monitor, discussed slynd, ablation, call if any irregular cycles Health Concerns Section Related Observation LastModified by Organization Detai ls LastModified Time None Recorded Concern Status LastModified by Organization Details LastModified Time None Recorded Advance Directives Directive N: Payers Encounter Date Sequence Insurance Name Policy Number Policy Anderson Covered Member ID Anderson Member ID Guarantor Name 09/12/2022 1 [place] [id number] Linda Plascencia [id number] Linda Plascencia 09/12/2022 2 [employer] [place] - OPEN ACCESS [id number] None None NO SECONDARY INSURANCE Linda Plascencia 03/04/2023 1 [place] [id number] Linda Plascencia [id number] Linda Plascencia 03/04/2023 2 [employer] [place] ACCESS 736 None None NO SECONDARY INSURANCE Linda Paner 07/29/2023 1 [place] [id number] Linda Paner [id number] Linda Plascencia 07/29/2023 2 [facility] - OPEN ACCESS 736 None None NO SECONDARY INSURANCE Linda Plascencia 05/10/2024 1 [place] [id number] Linda Barraganecker [id number] Linda Plascencia 08/03/2024 1 [place] [id number] Linda Paner [id number] Linda Plascencia Notes Date Note Type Note Provider Name and Address Organization Details Recorded Time 09/12/2022 text/html Pt here for EMB, reviewed us for irregular bleeding, had more than one cycle last month, previously was skipping cycles, reviewed se risks and benefits including bleeding and infection, still currently bleeding, consent signed. Liane Henning CNM [address], [place], [address], [facility] 09/13/2022 18:30:28 03/04/2023 text/html was having irregular periods, emb and us done, started on slynd, very happy on slynd, only one day of small amount of spotting. no side effects, no complaints Liane Henning CNM [address], [place], [address], [facility] 03/05/2023 07:48:02 07/29/2023 text/html Annual GYNReport ed bypatient.History: no gynecologic complaints Menstrual cycle:Normal menses Urinary symptoms:No hematuria; No incontinence Vulva:No genital lesion Vagina:Normal vaginal discharge Breast:No breast pain; No breast lump; No nipple discharge Sexual complaints:No sexual complaints; No pain during intercourse; Normal libido Menopausal Symptoms:No menopausal symptoms; Normal vaginal lubrication Psychological symptoms:No depression; No anxiety; No PMDD Preventive measures:Encourage self breast examination; Encourage regular exercise; Encourage no tobacco use; Encourage regular mammograms starting age 40Notes:doing well would like pap, mammogram up to date, slynd for irreg/disordered bleeding will stop summer time and will rpt us and consider labs in may Liane Henning CNM [address], [place], [address], [facility] 07/29/2023 16:58:31 08/03/2024 text/html Annual GYNReport ed bypatient.History: had irreg cycles, was on slynd, now monthly cycle x 3 months, no irregular bleeding, no other signs of menopause Menstrual cycle:Normal menses Urinary symptoms:No hematuria; No incontinence Vulva:No genital lesion Vagina:Normal vaginal discharge Breast:No breast pain; No breast lump; No nipple discharge Sexual complaints:No sexual complaints; No pain during intercourse; Normal libido Menopausal Symptoms:No menopausal symptoms; Normal vaginal lubrication Psychological symptoms:No depression; No anxiety; No PMDD Preventive measures:Encourage self breast examination; Encourage regular exercise; Encourage no tobacco use; Needs to schedule mammogramNotes:dis cussed checking labs, going to retire in 3 years! Liane Henning CNM [address], [place], [address], [facility] 08/04/2024 13:37:36 OBGyn Episode Ob Episode Information Episode Created Date Number of Fetuses Patient Bloodtype Patient rh Status Prepregnancy Weight lbs Domestic Partner Domestic Partner Phone Father Name Integrity Analyst Status 02/28/20 20 1 CLOSED Fetus Data First Name Last Name Admitted to NICU Weight (g) Sex Living Outcome Pediatric Complications Fetus ID Race Codes Race Delivery Type 3401.94 M Full Term [id number] Vaginal Delivery Kirk Calculation Initial Kirk Date Initial Exam Date Initial Exam Provider Initial Ultrasound Date Last Menstrual Period Date Ultra Sound Weeks Gestation 0 Eighteen To Twenty Week Kirk Update Ultra Sound Date Fundal Height At Umbil Quickening Date Ultra Sound Latest Weeks Gestation Final Kirk Confirmed By Final Kirk Confirmed Date Final Kirk Date Ultra Sound Latest Days Gestation 0 0 Menstrual History Last Menstrual Date Menses Monthly On Bcp Conception Prior Menses Frequency Hcg Plus Date Menarche Onset Age Delivery Information Delivery Date Delivery Type Labor Anesthesia Weeks Gestation Incision Type Labor Labor Length Hrs Delivered By Post Complications Tubal Sterilization Discharge Date Comments 4 39 Discharge Information Feeding Method Contraceptive Method Maternal HG B and HCT Levels Ob Episode Information Episode Created Date Number of Fetuses Patient Bloodtype Patient rh Status Prepregnancy Weight lbs Domestic Partner Domestic Partner Phone Father Name Integrity Analyst Status 02/28/20 20 1 CLOSED Fetus Data First Name Last Name Admitted to NICU Weight (g) Sex Living Outcome Pediatric Complications Fetus ID Race Codes Race Delivery Type 3203.26 6704 M Prematur e [id number] Vaginal Delivery Kirk Calculation Initial Kirk Date Initial Exam Date Initial Exam Provider Initial Ultrasound Date Last Menstrual Period Date Ultra Sound Weeks Gestation 0 Eighteen To Twenty Week Kirk Update Ultra Sound Date Fundal Height At Umbil Quickening Date Ultra Sound Latest Weeks Gestation Final Kirk Confirmed By Final Kirk Confirmed Date Final Kirk Date Ultra Sound Latest Days Gestation 0 0 Menstrual History Last Menstrual Date Menses Monthly On Bcp Conception Prior Menses Frequency Hcg Plus Date Menarche Onset Age Delivery Information Delivery Date Delivery Type Labor Anesthesia Weeks Gestation Incision Type Labor Labor Length Hrs Delivered By Post Complications Tubal Sterilization Discharge Date Comments 0 36 true PROM labor Discharge Information Feeding Method Contraceptive Method Maternal HG B and HCT Levels
--- OUTSIDE RECORDS SUMMARY | 2024-08-17 14:58 | XMS_ITS | Referral Summary ---
Author Organization [address] Address [address] [address] Care Team Providers Care Plastics Seasoner Operator Name Role Phone DEMARCUS Price Jr., Robert James Primary Care Provide r De Higgins MD Unavailable [phone] Seth Lofton MD Unavailable Allergies Active Allergy Reactions Criticality Noted Date Comments Penicillins Hives Reaction: HIVES, Sulfa (Sulfonamide Antibiotics) Hives Reaction: HIVES, Sulfamethoxazole-Trimethoprim Unknown 2019 Terfenadine Hives Reaction: HIVES, Medications cholecalcifero l (VITAMIN D-3) 5,000 unit capsule Take 1 capsule (5,000 Units total) by mouth daily Active vitamin b complex tablet Take 1 tablet by mouth daily Active drospirenone, contraceptive, (Slynd) tablet tablet Take 1 each (4 mg total) by mouth daily Active magnesium oxide 400 mg magnesium capsule Take 400 mg by mouth daily Active pantoprazole DR (PROTONIX) 40 mg EC tablet Active valsartan-hydr oCHLOROthiazid e (DIOVAN-HCT) 80-12.5 mg per tabletIndicati ons:hypertensi on TAKE 1 TABLET BY MOUTH DAILY 90 tablet 1 5 08/10/19 26 Active valsartan-hydr oCHLOROthiazid e (DIOVAN-HCT) 80-12.5 mg per tabletIndicati ons:hypertensi on Take 1 tablet by mouth daily 90 tablet 1 4 08/10/19 25 Discontinued Active Problems Problem Noted Date Diagnosed Date Gastroesophageal reflux disease without esophagi tis 12/04/2022 Chest pressure 03/06/2021 Essential hypertension 03/06/2021 Dyspnea on exertion 03/06/2021 Morbid obesity with BMI of 50.0-59.9, adult 09/0 07/2020 Palpitations 03/06/2021 Dizziness 03/06/2021 Pain of lower extremity 02/18/2021 Obesity with body mass index 30 or greater 02/14 Class 3 severe obesity due t o excess calories without serious comorbidity with body mass index (BMI) of 60.0 to 69.9 in adult 02/14/2018 Painful tongue 04/18/2016 Vitamin D deficiency 04/18/2016 Resolved Problems Problem Noted Date Diagnosed Date Resolved Date Calculus of gallbladder with out cholecystitis without obstruction 12/22/2022 01/29/2023 Immunizations Name Administration Dates Next Due Influenza, Quadrivalent, Spl it, Preservative Free, Intramuscular 04/18/2022,05/02/2020 Influenza, Trivalent, IM (MDV) 03/20/2021 Influenza, Unspecified 05/06/2023(Deferr ed: Patient Refused),04/29/2019 Moderna SARS-CoV-2 Monovalen t Vaccination (12+ YRS) 09/12/2020,08/15/2020 Tdap 01/30/2017 Social History Tobacco Use Types Packs/Day Years Used Date Smoking Tobacco: Former Cigarettes - 1991 Smokeless Tobacco: Never Comments:Minimal use in [facility] for a year or 2. AUDIT-C Answer Date Recorded Q1: How often do you have a drink containing alc ohol? 2-3 times a week 01/14/2023 Q2: How many drinks containi ng alcohol do you have on a typical day when you are drinking? 1 or 2 01/14/2023 Q3: How often do you have si x or more drinks on one occasion? Never 01/14/2023 PHQ-2 Answer Date Recorded PHQ-2 Total Score (If total score is 3 or more points, staff should administer the PHQ-9) 0 01/27/2024 Personal Safety Answer Date Recorded Have you ever been in or are you currently in a harmful physical or emotional relationship or is someone making you feel afraid or unsafe? 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 file Not on file No t on file Last Filed Vital Signs Vital Sign Reading Time Taken Comments Blood Pressure 126/88 01/27/2024 8:04 AM CDT Pulse 90 01/27/2024 8:04 AM CDT Temperature 36.3 C (97.3 F) 01/27/2024 8:04 AM CDT Respiratory Rate 18 01/27/2024 8:04 AM CDT Oxygen Saturation 99% 01/27/2024 8:04 AM CDT Inhaled Oxygen Concentration - - Weight 133 kg (293 lb 3.2 oz) 01/27/2024 8:04 AM CDT Height 157.5 cm (5' 2 ) 01/27/2024 8:04 AM CDT Body Mass Index 53.63 01/27/2024 8:04 AM CDT Plan of Treatment Not on file Procedures Procedure Name Priority Date/Time Associated Diagnosis Comments MAMMOGRAPHY Routine 02/26/2021 from Last 3 Months or Most Recently Relevant to Health Maintenance Results * MAMMOGRAPHY (02/26/2021) Mammography Normal Comment:REPEAT IN 1 YEAR 02/26/2021 Historical Provider HEALTH MAINTENANCE Final Result from Last 3 Months or Most Recently Relevant to Health Maintenance Insurance [employer] [place] ACCESS [employer] [place] [employer] [place] [employer] [place] [facility] [employer] ACCESS Care Teams Plastics Seasoner Operator Relationship Specialty Start [place] [address] [phone] PCP - General Family Medicine 02/16/19 De Higgins MD [address] [phone] Consulting Physician Family Medicine 12/25/21 Seth Lofton MD [address] [address] Consulting Physician General Surgery 01/14/23
--- OUTSIDE RECORDS SUMMARY | 2024-08-17 14:58 | XMS_ITS | Clinical Summary ---
Author Organization [facility] Address [address] [place] [address] Care Team Providers Care Founder Name Role Phone Josiah Price Primary Care Provider [phone] Social History Tobacco Use Types Packs/Day Years Used Date Smoking Tobacco: Never Assessed Comments Unknown Sex and Gender Information Value Date Recorded Sex Assigned at Not on file Legal Sex Female 5:58 PM CDT Gender Identity Not on file Sexual Orientation Not on file Plan of Treatment Health Maintenance Due Date Last Done Comments Cervical Cancer Screening Pa p Smear (Age 30 to 64) Every 3 Years 1971 Colorectal Cancer Screening Colonoscopy (10 Years) 1971 Annual Physical 12/26/1974 Hepatitis C 12/26/1989 DTaP, Tdap and Td Vaccines ( 1 - Tdap) 12/26/1990 Hepatitis B Vaccines (1 of 3 - 19+ 3-dose series) 12/26/1990 Cervical Cancer Screening Pa p with HPV Testing (Age 30 to 64) Every 5 Years 12/26/2001 Cervical Cancer Screening with HPV 12/26/2001 Mammogram Screening 2011 Zoster Vaccines (1 of 2) 12/26/2021 COVID-19 Vaccine (2023-2 5 season) 2024 Influenza Adult (#1) 2024 Meningococcal B Vaccine Aged Out No l onger eligible based on patient's age to complete this topic Meningococcal Vaccine Aged Out No lamont radha eligible based on patient's age to complete this topic Pneumococcal Vaccine: Pediat rics (0 to 5 Years) and At-Risk Patients (6 to 64 Years) Aged Out No longer eligible b ased on patient's age to complete this topic RSV Immunizations Under 20 Months Aged Out No longer eligible based on patient's age to complete this topic Care Teams Founder Relationship Specialty Start Date End Date Josiah Price PA [address] [place] [phone] PCP - General 02/02/16
--- OUTSIDE RECORDS SUMMARY | 2024-08-17 14:58 | XMS_ITS | Clinical Summary ---
Author Organization [address] Address [address] [address] Care Team Providers Care Monogram Machine Operator Name Role Phone DEMARCUS Price Jr., Robert James Primary Care Provide r De Higgins MD Unavailable [phone] Seth Lofton MD Unavailable Allergies Active Allergy [...] t Vaccination (12+ YRS) 09/12/2020,08/15/2020 Tdap 01/30/2017 Surgical History Surgery Date Site/Laterality Comments ANAL FISSURECTOMY 07/06/2010 - 07/05/2011 LAPAROSCOPIC CHOLECYSTECTOMY 01/14/2023 Chronic calculous cholecystitis Medical History Medical History Date Comments Hypertension Anxiety Morbid obesity with BMI of 50.0-59.9, adult (HCC ) Vaginal delivery X2 Family History Medical History Relation Name Comments Alzheimer's disease Father Gene Catalpa Hypertension Father Gene Catalpa Colon cancer Father's Brother Cancer Maternal Grandmother Shirlene Acunsis Colon cancer Maternal Grandmother Shirlene Acunsis Asthma Mother Samina Montes Hypertension Mother Samina Montes Stroke Paternal Grandfather Kyrie Montes Breast cancer Paternal Grandmother Kristina Catalpa Cancer Paternal Grandmother Kristina Quinonespa Gallbladder disease Neg Hx Relation Name Status Comments Father Gene Catalpa Father's Brother Maternal Grandmother Shirlene Linn Mother Samina Montes Paternal Grandfather Kyrie Montes Paternal Grandmother Kristina Montes Social History Tobacco Use Types Packs/Day Years Used Date Smoking Tobacco: Former Cigarettes 1 - 1991 Smokeless Tobacco: Never Comments:Minimal use in [place] e[place] for a year or 2. 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 Not on file No t on file Obstetrics History Last Filed Vital Signs Vital Sign Reading [...] 01/27/2024 8:04 AM CDT Plan of Treatment Health Maintenance Due Date Last Done Comments Cervical Cancer Screening 1971 Colon Cancer Screening-Colonoscopy 1971 Hepatitis C Screening 1971 Hepatitis B Screening 12/26/1989 Zoster Vaccine (1 of 2) 12/26/2021 Breast Cancer Screening-Mammogram 02/26/2022 02/26/2021, 02/23/2020 Covid-19 Vaccine ( season) 2024 07/31/2021, 09/12/2020, 08/15/2020 Influenza Vaccine (#1) 2024 , 03/20/2021, 05/02/2020, Additional history exists Depression Screening 01/26/2025 01/27/2024, 03/01/2021, 01/02/2021, Additional history exists Regular Well Visit/Exam 18-64 01/26/2025 01/27/2024, 01/27/2024, 12/04/2022, Additional history exists DTaP/Tdap/Td Vaccine (2 - Td or Tdap) 01/30/2027 01/30/2017 Pneumococcal vaccine <65 Aged Out No longer eligible based on patient's age to complete this topic Procedures Procedure Name Priority Date/Time Associated Diagnosis Comments MAMMOGRAPHY Routine 02/26/2021 from Last 3 Months or Most Recently Relevant to Health Maintenance Results * MAMMOGRAPHY (02/26/2021) Mammography Normal Comment:REPEAT IN 1 YEAR 02/26/2021 Historical Provider MD HEALTH MAINTENANCE Final Result from Last 3 Months or Most Recently Relevant to Health Maintenance Insurance [employer] [place] [employer] [place] [facility] [employer] Care Teams Monogram Machine Operator Relationship Specialty Start Date End Date Josiah Price Jr., PA [facility] [phone] PCP - General Family Medicine 02/16/19 De Higgins MD [facility] [phone] Consulting Physician Family Medicine 12/25/21 Seth Lofton MD [address] [address] Consulting Physician General Surgery 01/14/23
== END 2024-08-17 14:54 | disposition home or self-care (01) ==
LOC: ANHIMG 14:56
PROVIDERS: PCP Physician Assistant; Visit Provider Advanced Practice Midwife
DX: Z12.31 Encounter for screening mammogram for malignant neoplasm of breast (principal)
CPT/HCPCS: 77063; 77067